=== PATIENT | female | born 1940 | race African-American/Black ===

== ENCOUNTER → 2016-04-03 | Day surgery (SDC) | payer MEDICARE, BC ==
--- NOTE | 2016-04-01 16:00 | Pre-Procedure Note/Attestation ---
Pre-Procedure Note/Attestation Complete Prior to Procedure Planned Procedure: left Procedure Narrative: phaco with IOL, OS Indications for Procedure Pre-Operative Diagnosis: cataract Attestation I attest that I discussed the nature of the procedure; its benefits; risks and complications; and alternatives (and the risks and benefits of such alternatives ), prior to the procedure, with the patient (or the patient's legal field service representative). I attest that, if there was a reasonable possibility of needing a blood transfusion, the patient (or the patient's legal field service representative) was given the [facility] standardized written summary, pursuant to the Saturnino Stefany Blood Safety Act ([place] Health and Safety Code # 1645, as amended). I attest that I re-evaluated the patient just prior to the surgery and that there has been no change in the patient's H&P, except as documented below: JOSHUA ADAM Apr 01, 2016 16:00
--- NOTE | 2016-04-01 16:01 | Opthalmology H&P ---
Ophthalmology H&P H&P Chief Complaint: decreased vision in left eye HPI Vision Affects Ability to: read, focus/use eyes together, manage personal affairs HPI Narrative blurry vision Exam Visual Acuity: OD: 20/50 OS; 20/60 Tension: OD: 20 OS; 14 Eye Exam: normal OU: anterior chambers, corneas, external exam, levator function, marginal reflex distance, palpebral fissure-width, findings: fundus exam - OD: 0.45 OS: 0.45, lens - OD: ns OS: ns Assessment/Plan Diagnosis: (1) Cataract Treatment Plan: cataract extraction w/ lens implant Goals of Treatment: improvement of vision, enhance quality of life Attestation Attestation The risks and benefits of the surgery as well as alternative procedures were explained to the patient in detail. JOSHUA ADAM Apr 01, 2016 16:01
[2016-04-02 11:46] LABS: BASOPHILS % (AUTO) 1.4 % (0.0-2.0); LYMPHOCYTES % (AUTO) 21.8 % (20.0-45.0); MEAN CORPUSCULAR HGB CONC 31.8 G/DL (32.0-36.0); MEAN CORPUSCULAR VOLUME 88 FL (80-99); MEAN PLATELET VOLUME 8.4 FL (6.5-10.1); MONOCYTES % (AUTO) 5.9 % (1.0-10.0); PLATELET COUNT 229 K/UL (150-450); RED BLOOD COUNT 5.41 M/UL (4.20-5.40); RED CELL DISTRIBUTION WIDTH 14.2 % (11.6-14.8); WHITE BLOOD COUNT 9.4 K/UL (4.8-10.8)
[2016-04-02 11:58] LABS: PROTHROMBIN TIME 10.6 SEC (9.30-11.50)
[2016-04-02 12:03] LABS: ALANINE AMINOTRANSFERASE 11 U/L (3-33); ALBUMIN/GLOBULIN RATIO 1.1 (1.0-2.7); ANION GAP 17 (5-15); ASPARTATE AMINO TRANSFERASE 20 U/L (5-40); CALCIUM 9.5 mg/dL (8.6-10.2); CARBON DIOXIDE 26 mEQ/L (20-30); CHLORIDE 96 mEQ/L (98-107); CREATININE 1.4 mg/dL (0.5-0.9); HEMOLYSIS 7; POTASSIUM 3.6 mEQ/L (3.4-4.9); SODIUM 139 mEQ/L (135-145); TOTAL PROTEIN 7.8 g/dL (6.6-8.7)
--- NOTE | 2016-04-02 12:26 | Diagnostic Imaging Report ---
Indication: PAIN Technique: Two views of the chest Comparison: none Findings: Lungs and pleural spaces are clear. Aorta is tortuous and calcified. Bones are unremarkable. Heart size is normal. There is evidence of prior right shoulder surgery Impression: No acute process
[~2016-04-03] VITALS: Ht 160 cm; Wt 65.8 kg
[2016-04-03] VITALS (10 sets, daily range): BP systolic 125–162; BP diastolic 58–93
[~2016-04-03] MED LIST: ATORVASTATIN CA20 MG ORAL; Akten 3.5% 1ml Btl LEFT EYE ONE; BSS 15ml BTL ONE; BSS 500ml btl ONE; Carbachol 0.01% Op Soln 1.5ml vial ONE; Diclofenac Sod 0.1% Op Soln LEFT EYE SCH; EPINEPHrine 1mg/1ml Amp ONE; HYDROCHLOROTH12.5 M2 ORAL; LOSARTAN POTASS50 MG ORAL; LR 1000ml 1,000 ML IVLG SCH; Lidocaine 4% Amp ONE; Midazolam 2mg/2ml Inj ONE; NS Irrig 1000ml ONE; Pilocarpine 2% Opth Soln ONE; Povidone-Iodine 5% opth solution ONE; Propofol 10mg/ml 20ml IV ONE; Sodium Hyaluronate 14 mg/ml 0.85ml ONE; Sterile Water Irrig 1000ml IRRIG ONE; Tetracaine 0.5% Opth Soln ONE; Tobramycin Op Soln 0.3% ONE; acetaZOLAMIDE 500mg Inj ONE; fentaNYL 100 mcg/2 mL IV ONE; fentaNYL 100 mcg/2 mL IV PRN
[2016-04-03] MEDS: Cyclopentolate 1% Opth Sol LEFT EYE SCH ×3 (05:43→06:02)
[2016-04-03] MEDS: Tropicamide 1% Opth Soln LEFT EYE SCH ×3 (05:44→06:02)
[2016-04-03] MEDS: Phenylephrine 2.5% Op Soln LEFT EYE SCH ×3 (05:44→06:02)
--- NOTE | 2016-04-03 07:30 | Anethesia Preoperative Eval ---
Anesthesia Pre-op PMH/ROS General Date of Evaluation: Apr 03, 2016 Time of Evaluation: 07:26 Anesthesiologist: Manda ASA Score: ASA 2 Mallampati Score Class I : Soft palate, uvula, fauces, pillars visible Class II: Soft palate, uvula, fauces visible Class III: Soft palate, base of uvula visible Class IV: Only hard plate visible Mallampati Classification: Class II Surgeon: Denise Diagnosis: L eye cataract Surgical Procedure: L eye cataract extraction with IOL Anesthesia History: none Family History: no anesthesia problems Allergies: Coded Allergies: CODEINE (Verified Allergy, Mild, 04/01/16) Medications: see eMAR Past Medical History Cardiovascular: Reports: HTN, Denies: CAD, [place], arrhythmia, other, valve dz Pulmonary: Denies: COPD, JOSÉ MIGUEL, asthma, other Gastrointestinal/Genitourinary: Reports: GERD, Denies: CRI, ESRD, other Neurologic/Psychiatric: Denies: CVA, TIA, dementia, depression/anxiety, other Endocrine: Denies: DM, hypothyroidism, other, steroids HEENT: Reports: cataract (L), cataract (R), Denies: [place] (L), [place] (R), glaucoma, other Hematology/Immune: Denies: DVT, anemia, bleeding disorder, other Musculoskeletal/Integumentary: Reports: DJD, Denies: DDD, OA, RA, edema, other PMH Narrative: as above PSxH Narrative: R shoulder L knee replacement Anesthesia Pre-op Phys. Exam Physician Exam Last Vital Signs Date Time Temp Pulse Resp B/P Pulse Ox O2 Delivery O2 Flow Rate FiO2 04/03/16 05:48 97.5 58 20 125/87 100 Room Air Constitutional: NAD Neurologic: CN 2-12 intact Cardiovascular: RRR, no M/R/G Respiratory: CTA Gastrointestinal: S/NT/ND Airway Exam Mallampati Score: Class II MO: limited Neck: stiff ROM: limited Teeth: missing Dentures: lower, upper Anesthesia Pre-op A/P Labs Hematology Test 04/02/16 11:25 White Blood Count 9.4 K/UL (4.8-10.8) Red Blood Count 5.41 M/UL (4.20-5.40) H Hemoglobin 15.2 G/DL (12.0-16.0) Hematocrit 47.7 % (37.0-47.0) H Mean Corpuscular Volume 88 FL (80-99) Mean Corpuscular Hemoglobin 28.0 PG (27.0-31.0) Mean Corpuscular Hemoglobin Concent 31.8 G/DL (32.0-36.0) L Red Cell Distribution Width 14.2 % (11.6-14.8) Platelet Count 229 K/UL (150-450) Mean Platelet Volume 8.4 FL (6.5-10.1) Neutrophils (%) (Auto) 70.0 % (45.0-75.0) Lymphocytes (%) (Auto) 21.8 % (20.0-45.0) Monocytes (%) (Auto) 5.9 % (1.0-10.0) Eosinophils (%) (Auto) 1.0 % (0.0-3.0) Basophils (%) (Auto) 1.4 % (0.0-2.0) Coagulation Test 04/02/16 11:25 Prothrombin Time 10.6 SEC (9.30-11.50) Prothromb Time International Ratio 1.0 (0.9-1.1) Activated Partial Thromboplast Time 30 SEC (23-33) Chemistry Test 04/02/16 11:25 Sodium Level 139 mEQ/L (135-145) Potassium Level 3.6 mEQ/L (3.4-4.9) Chloride Level 96 mEQ/L (98-107) L Carbon Dioxide Level 26 mEQ/L (20-30) Anion Gap 17 (5-15) H Blood Urea Nitrogen 17 mg/dL (7-23) Creatinine 1.4 mg/dL (0.5-0.9) H Estimat Glomerular Filtration Rate mL/min (>60) Glucose Level 105 mg/dL (74-106) Calcium Level 9.5 mg/dL (8.6-10.2) Total Bilirubin 0.6 mg/dL (0.0-1.2) Aspartate Amino Transf (AST/SGOT) 20 U/L (5-40) Alanine Aminotransferase (ALT/SGPT) 11 U/L (3-33) Alkaline Phosphatase 70 U/L (35-104) Total Protein 7.8 g/dL (6.6-8.7) Albumin 4.2 g/dL (3.5-5.2) Globulin 3.6 g/dL Albumin/Globulin Ratio 1.1 (1.0-2.7) Studies Pre-op Studies: EKG - NSR Risk Assessment & Plan Assessment: ASA 2 Plan: MAC Status Change Before Surgery: No Pre-Antibiotics Drug: none NEHEMIAS KOLB M.D. Apr 03, 2016 07:30
--- NOTE | 2016-04-03 08:59 | Immediate Post-Op Evaluation ---
Immediate Post-Op Evalulation Immediate Post-Op Evalulation Procedure: L eye cataract extraction with IOL Date of Evaluation: Apr 03, 2016 Time of Evaluation: 08:27 IV Fluids: 300 Blood Products: none Estimated Blood Loss: none Urinary Output: none Blood Pressure Systolic: 132 Blood Pressure Diastolic: 56 Pulse Rate: 72 Respiratory Rate: 20 O2 Sat by Pulse Oximetry: 99 Temperature (Fahrenheit): 97.6 Pain Score (1-10): 2 Nausea: No Vomiting: No Complications none Patient Status: awake, patent, none Hydration Status: adequate NEHEMIAS KOLB M.D. Apr 03, 2016 08:59
--- NOTE | 2016-04-03 10:07 | 48 Hour Post Anesthesia Eval ---
Post Anesthesia Evaluation Procedure: L eye cataract extraction with IOL Date of Evaluation: Apr 03, 2016 Time of Evaluation: 10:06 Blood Pressure Systolic: 142 0: 58 Pulse Rate: 76 Respiratory Rate: 20 Temperature (Fahrenheit): 97.5 O2 Sat by Pulse Oximetry: 98 Airway: patent Nausea: No Vomiting: No Pain Intensity: 1 Hydration Status: adequate Cardiopulmonary Status: stable Mental Status/LOC: patient returned to baseline Follow-up Care/Observations: n/a Post-Anesthesia Complications: none Follow-up care needed: ready to discharge NEHEMIAS KOLB M.D. Apr 03, 2016 10:07
--- NOTE | 2016-04-04 03:02 | Cardiology Report ---
APPROVED REPORT EKG Measurement Heart [id number] Sinus rhythm with premature atrial complexes Otherwise normal ECG
--- NOTE | 2016-04-04 10:15 | Brief Operative Note ---
Immediate Post Operative Note Operative Note Chief Complaint: blurry vision Pre-op Diagnosis: cataract Procedure: phaco with IOL Post-op Diagnosis: pseudophakia Post-op Diagnosis: same as pre-op Findings: consistent w/pre-op dx studies Surgeon: Denise Anesthesiologist: Manda Anesthesia: MAC Specimen: none Complications: none Condition: stable Estimated Blood Loss: none Drains: none Implant(s) used?: Yes JOSHUA ADAM Apr 04, 2016 10:15
--- NOTE | 2016-04-04 10:16 | Operative Note - PDOC ---
Operative Note Operative Note Date of Operation/Procedure: Apr 03, 2016 Chief Complaint: blurry vision Pre-op Diagnosis: cataract Procedure: phaco with IOL Post-op Diagnosis: pseudophakia Post-op Diagnosis: same as pre-op Operative Findings: consistent w/pre-op dx studies Surgeon: Denise Anesthesiologist: Manda Anesthesia: MAC Specimen: none Complications: none Condition: stable Estimated Blood Loss: none Drains: none Implant(s) used?: Yes Indications for Procedure cataract Description of Procedure This patient has been complaining visually significant cataract in the affected eye with the best corrected visual acuity under moderate glare conditions worse. The patient complains of difficulties with glare in performing activities of daily living and wants to manage personal affairs with comfort and accuracy and see well enough to move with safety at home and outdoors. ~~~ The risks, benefits and alternatives of the procedure were discussed with the patient in the office prior to scheduling surgery. All questions from the patient were answered after the surgical procedure was explained in detail. The risks of the procedure as explained to the patient include, but are not limited to, pain, infection, bleeding, loss of vision, retinal detachment, need for further surgery, loss of lens nucleus, double vision, etc. Alternative procedures were discussed which include, to do nothing or seek a second opinion. Informed consent for this procedure was obtained from the patient. The patient was referred to a primary care physician for a cardiopulmonary clearance prior to surgery, after proper evaluation was done patient was properly scheduled for outpatient surgery. The patient was brought to the operating room where the anesthesiologist established I.V. lines and cardiac monitoring leads. Mild intravenous sedation was administered.~~ The patient was then prepared with a 5% solution of povidone -iodine to the conjunctival fornix and lashes, and a 10% solution of povidone- iodine to the lids and periorbital skin. The patient was then draped in the usual sterile fashion. A lid speculum was then placed in the operative eye. A keratome blade was then used to create a biplanar incision into the anterior chamber. Viscoelastics was then instilled into the anterior chamber. A capsulorrhexis was then fashioned with an utrata forceps followed by hydrodissection and hydro delineation the lens nucleus. Paracentesis incision was made at 3 o'clock with sharp blade. The phacoemulsification unit, after being properly adjusted~ and tested, was then used to emulsify the nucleus. Residual cortical material was aspirated with the irrigation and aspiration unit. Healon was then instilled into the anterior chamber. The corneal wound was then enlarged to the size of the optic with the montrell keratome blade. The intraocular lens was then inspected for right~ power and size~ and thought to be satisfactory. Then the lens was gently placed in the capsular bag. Positioning within the capsular bag was confirmed by direct visualization. Optic centration was accomplished with a Sinskey hook. Viscoelastics~ was removed from the anterior chamber using the irrigation and aspiration unit. The corneal wound was then tested for leaks and none were found. The lid speculum were then removed. Sponge and needle counts were correct. An eye patch and shield were placed over the operative eye. The patient was taken to the recovery room in stable condition. There were no complications. The patient tolerated the procedure well. The patient was then transferred to the ambulatory surgery unit in stable and satisfactory condition , was given detailed written instructions and asked to follow up~ in the office the next day. ~ JOSHUA ADAM Apr 04, 2016 10:16
--- NOTE | 2016-04-09 14:10 | Pre-op HX & Phy Repo 2 SIG ---
DATE OF ADMISSION: 04/03/2016 REASON FOR EVALUATION: I was asked by Dr. Niko Walker to see this 75-year-old female, who is going for elective surgery on the left eye. The patient has a cataract left eye. Please see History and Physical by Dr. Niko Walker. The patient was evaluated, chart was reviewed. Brief evaluation 04/02/2016, surgery scheduled for 04/03/2016 at [facility]. PAST MEDICAL HISTORY/REVIEW OF SYSTEMS: Remarkable for hypertension and hyperlipidemia. Denies history of [place]. No history of stroke or seizures. No history of diabetes. The patient has a history of peptic ulcer disease so many years ago. No thyroid problem. No renal failure. No hepatitis. PAST SURGICAL HISTORY: Right knee replacement, right shoulder rotator cuff repair, and tubal ligation. FAMILY HISTORY: Mother has hypertension and end-stage renal disease. Father from heart attack. ALLERGIES: To codeine and oxycodone. PRESENT MEDICATIONS: Includes atorvastatin, Cozaar 100 mg, and hydrochlorothiazide 12.5 mg. HABITS: Denies tobacco or alcohol use. No street drugs. PHYSICAL EXAMINATION: GENERAL: Alert, well-developed, well-nourished female, in her 70s, in no acute distress. VITAL SIGNS: Blood pressure 126/86, temperature 97.2 degrees, pulse 70, respirations 18, and O2 saturation 100%. SKIN: Scar on the shoulder and right knee. LYMPHATICS: Lymph nodes not enlarged. SKIN: Warm and dry. HEENT: Head, normocephalic. Ears, clear. No discharge. Nose, clear. No discharge. Mouth is clear. There is denture implants. Eyes, full description per Dr. Niko Walker. NECK: Supple. No jugular vein distention. Carotids artery +2. Trachea midline. CHEST: No deformity or asymmetry. LUNGS: Clear. No rales or rhonchi. HEART: Sinus rhythm. No ectopy. No murmur. No S3 or S4. ABDOMEN: Soft. No mass. No rebound. Liver and spleen not enlarged. EXTREMITIES: Degenerative joint disease. No edema. No varicose vein. Right total knee replacement and right shoulder rotator cuff repair surgery. RENAL/GENITOURINARY: No diuresis. No dysuria. No CVA tenderness. NEUROLOGIC: No tremor. No nystagmus. No asymmetry. LABORATORY AND DIAGNOSTIC DATA: Electrocardiogram, sinus rhythm, 68 per minute with premature atrial complexes. Lab work, white blood cells 94,000, red blood cells 5.41, hemoglobin 15.2, and hematocrit 47.7. Sodium 139, potassium 3.6, and BUN 1.4, creatinine 1.4, BUN is 17. Her blood sugar 105 and calcium 9.5. The patient is otherwise to be NPO from midnight until day of surgery. IMPRESSION: 1. Cataract, left eye. 2. Hypertension controlled. 3. Hyperparathyroidism. 4. Osteoarthritis. 5. History of peptic ulcer disease. PLAN: Cataract extraction with intraocular lens implant, left eye by Dr. Niko Walker. CONCLUSION: The patient's vital signs stable. Laboratory, normal. EKG, sinus rhythm with PACs. Again, the patient is otherwise to be NPO before surgery for at least 6 to 12 hours. The patient's condition optimized for surgery. Thank you very much, Dr. Walker, for privilege to participate in presurgical care of this interesting patient. Demarcus Juárez M.D. DR: Radha JOB#: [id number] CC:
== END | disposition home or self-care (01) ==
LOC: SUR 05:02
DX: H26.9 Unspecified cataract (principal); I10 Essential (primary) hypertension; E78.5 Hyperlipidemia, unspecified; M19.90 Unspecified osteoarthritis, unspecified site; K21.9 Gastro-esophageal reflux disease without esophagitis; Z96.651 Presence of right artificial knee joint; Z88.5 Allergy status to narcotic agent
CPT/HCPCS: 36415; 66984; 71020; 80053; 85025; 85610; 85730; 93005; J2250; J2704; J3010; J3370; V2632; 94003; 94150